=== PATIENT | female | born 1990 | race Caucasian/White ===

== ENCOUNTER 2017-12-26 10:10 | Inpatient (IN) | payer BC, MEDICAID ==
[2017-12-26] MEDS: RINGER'S SOLUTION,LACTATED 1,000 ML IV ONE ×3 (10:40→21:10)
[2017-12-26] MEDS ORDERED: oxyCODONE HCL 5 MG TABLET PO PRN (11:05)
--- NOTE | 2017-12-26 16:30 | PN ---
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 admitted for severe right sided back pain and flank pain. received rocephin 1 g iv at 8 am. IV hydration with LR x 2 liter and now at 125 ml/h. feeling better now. flank pain is at 1/10. urinated 3-4 times with good amount of urine, not measured. urine was rita color earlier and now clearer. patient is afebrile. patient vitals now: BP 111/57, P 97, 96, 92, 93 O2 sat 99% ra T 36.9 FHR: reassuring, 125s with accels. renal u/s showed severe right sided hydronephrosis with debris, possible obstructed and infected, but bilateral ureteral jets seen. minimal left-sided hydronephrosis. spoke to Dr. Faustin regarding a stat consultation. He thought the patient's condition is overall stable and he will see the patient tomorrow. He recommended to repeat renal u/s in the morning and a KUB to rule out stones. will put KUB on hold until he sees the patient. will transfer to [facility] if patient is not improving. continue rocephin 1 g q12h, iv LR at 125 ml/h, pain meds prn. Adam Sauer MD Objective - Vitals Vitals: Last Vital Signs Temp 36.8 C 12/26/17 10:41 Pulse 102 H 12/26/17 10:41 Resp 18 12/26/17 10:41 BP 111/55 12/26/17 10:41 Pulse Ox 98 12/26/17 10:41
[2017-12-26] MEDS: oxyCODONE HCL/ACETAMINOPHEN 1 TAB TABLET PO PRN (19:22)
[2017-12-26] MEDS: cefTRIAXone SODIUM 1,000 MG in DEXTROSE 5 % IN WATER 50 ML IV SCH ×2 (19:56)
[2017-12-27] MEDS: oxyCODONE HCL/ACETAMINOPHEN 1 TAB TABLET PO PRN ×3 (01:47→18:44)
[2017-12-27 06:05] LABS: Urine Bilirubin Negative (NEGATIVE); Urine Blood 25 /ul (NEGATIVE); Urine Ketone Negative (NEGATIVE); Urine Nitrite Negative (NEGATIVE); Urine Protein Negative (NEGATIVE); Urine Urobilinogen Normal (NORMAL); Urine pH 7.5 pH (5.0-7.0)
[2017-12-27 06:15] LABS: Urine Appearance Cloudy (CLEAR); Urine Bacteria 1+; Urine Color Yellow; Urine RBC 0-5 /hpf (0-5); Urine WBC 25-50 /hpf (0-5)
[2017-12-27 06:28] LABS: Hematocrit 24.6 % (37.0-47.0); Hemoglobin 8.2 gm/dL (12.5-16.0); Mean Cell Volume 97.6 fl (78-100); Mean Corpuscular Hemoglobin 32.5 pg (27-31); Mean Corpuscular Hgb Conc 33.3 g/dl (32-36); Platelet Count 403 K/mm3 (150-450); Red Blood Count 2.52 M/mm3 (4.2-5.4); Red Cell Distribution Width 14.2 % (11.5-14.0); White Blood Count 12.6 K/mm3 (4.0-10.5)
[2017-12-27 06:31] LABS: Total Cells Counted 100
[2017-12-27 06:42] LABS: Anion Gap 11.7 mmol/L (6.8-13.8); BUN/Creatinine Ratio 10.2 (9.0-21.6); Bilirubin, Total 0.2 mg/dL (0.0-1.1); Ca. Corrected For Albumin 9.3 mg/dL (8.4-10.2); Potassium 3.7 mmol/L (3.4-4.6); Total Protein 5.7 gm/dL (6.2-8.2)
[2017-12-27 06:45] LABS: Atypical (Reactive) Lymph 2 % (0-2); Band 2 % (0-2.0); Lymphocyte 10 % (20-51); Monocyte 7 % (0-9); Neutrophil 79 % (42-75)
[2017-12-27 06:46] LABS: Platelet Estimate Normal (NORMAL); RBC Morphology Normal (NORMAL)
[2017-12-27] MEDS: RINGER'S SOLUTION,LACTATED 1,000 ML IV ONE ×2 (06:48→16:42)
[2017-12-27] MEDS: cefTRIAXone SODIUM 1,000 MG in DEXTROSE 5 % IN WATER 50 ML IV SCH ×4 (08:11→20:20)
--- NOTE | 2017-12-27 11:41 | PN ---
Subjective - Date and Time Seen Date: 12/27/17 Subjective Narrative: Hospital day 1, 34.1 weeks . history of recurrent UTI. admitted for inpatient treatment of right pyelonephritis. currently on rocephin 1 g iv q12h, iv fluid and pain medications. patient responded well to treatment clinically. remains afebrile. back pain and flank pain much improved. urine looked better, now cloudy yellow, but maple syrup looking yesterday. labs showed WBC down to 12.6, BUN/Cr 5/0.49, u/a with decreasing WBC count to 25 -50, previously TNTC. urine culture from [facility] still pending. blood culture from here still pending. status: reassuring, with baseline 120s with accels and no contractions. Exam: NAD Lungs: clear bilaterally Abdomen: gravid, soft, non-tender Back: right CVA minimally tender, was severely tender yesterday Ext: no edema or calf tenderness. renal u/s showed severe hydronephrosis of the right and mild hydronephrosis on the left. however, bilateral ureteral jets were seen on u/s. Spoke with Dr. Alvarez (phone consultation), he thought that the patient might not need stenting given clinical improvement. He may have her partner come see the patient tomorrow or set up a follow up appointment in clinic in one week. He recommended to put patient on Keflex 250 mg daily at bedtime for prophylaxis after discharge. also spoke with Dr. Sanford regarding patient's admission and treatment. She will assume the patient care from now. Adam Sauer MD Objective - Vitals Vitals: Last Vital Signs Temp 36.9 C 12/27/17 07:03 Pulse 81 12/27/17 07:03 Resp 16 12/27/17 07:03 BP 104/61 12/27/17 07:03 Pulse Ox 99 12/27/17 07:03 - Abnormal Lab Findings Abnormal Lab Findings: Abnormal Lab Results 12/27/17 12/27/17 12/27/17 Range/Units 05:55 06:17 06:17 WBC 12.6 H (4.0-10.5) K/mm3 RBC 2.52 L (4.2-5.4) M/mm3 Hgb 8.2 L (12.5-16.0) gm/dL Hct 24.6 L (37.0-47.0) % MCH 32.5 H (27-31) pg RDW 14.2 H (11.5-14.0) % MPV 10.0 H (6.0-9.5) fl Neutrophils % (Manual) 79 H (42-75) % Lymphocytes % (Manual) 10 L (20-51) % Neutrophils # (Manual) 10.0 H (1.3-6.0) K/mm3 Lymphocytes # (Manual) 1.3 L (1.5-3.5) k/mm3 Chloride 108 H (97-106) mmol/L Est GFR (Non-Af Amer) 159 H (60-130) mL/min ALT 15 L (19-67) U/L Total Protein 5.7 L (6.2-8.2) gm/dL Albumin 2.0 L (3.4-5.0) gm/dl Urine Blood 25 H (NEGATIVE) /ul Ur Leukocyte Esterase 500 H (NEGATIVE) /ul Urine WBC 25-50 H (0-5) /hpf Urine Bacteria 1+ H (NONE)
[2017-12-27] MEDS ORDERED: TAMSULOSIN HCL 0.4 MG CAP.SR.24H PO SCH (21:00)
[2017-12-28] MEDS: oxyCODONE HCL/ACETAMINOPHEN 1 TAB TABLET PO PRN (00:47)
[2017-12-28] MEDS: cefTRIAXone SODIUM 1,000 MG in DEXTROSE 5 % IN WATER 50 ML IV SCH ×2 (08:58)
--- NOTE | 2017-12-28 09:13 | PN ---
Subjective - Date and Time Seen Date: 12/28/17 Time: 09:07 Subjective Narrative: Feeling much better. Wanting to go home. Objective - Review of Systems Generalized/Overall Review: Reports: No Symptoms Reported EENTM: Reports: No Symptoms Reported Respiratory: Reports: No Symptoms Reported Cardiac: Reports: No Symptoms Reported Abdominal: Reports: No Symptoms Reported Genitourinary Symptoms: Reports: No Symptoms Reported, Other - movement, denies contractions, LOF, bleeding Musculoskeletal Complaints: Reports: No Symptoms Reported Neurological: Reports: No Symptoms Reported Skin: Reports: No Symptoms Reported Endocrine: Reports: No Symptoms Reported - Vitals Vitals: Last Vital Signs Temp 37.0 C 12/28/17 07:46 Pulse 81 12/28/17 07:46 Resp 18 12/28/17 07:46 BP 116/55 12/28/17 07:46 Pulse Ox 100 12/28/17 07:46 - Exam Constitutional: Present: Alert, Oriented x3, Cooperative Respiratory: Present: no respiratory distress, no accessory muscle use Cardiovascular/Chest: Present: no edema Abdomen: Present: soft, nontender /Rectal: Present: Exam deferred Extremity: Present: normal range of motion, no pedal edema, no calf tenderness Skin Exam: Present: normal color, warm/dry Appearance: Present: appropriate appearance, appropriate insight Eye contact: Present: cooperative Assessment/Plan - Problems/Diagnosis (1) Pyelonephritis affecting in third trimester Problem: Acute Narrative: Symptoms improving. Afebrile. Continuing on rhocephin IV. Urology consultation pending for discharge plans. OK for d/c and FU with me next week if OK by urology. (2) Hydronephrosis determined by ultrasound Problem: Acute Narrative: Pain resolved. Plan per urology.
[2017-12-28 14:55] VITALS: BP 106/56
== END 2017-12-28 13:35 | disposition home or self-care (01) | DRG 781 ==
LOC: MS 10:10 → OBSVTOIN 16:23
PROVIDERS: ADMIT Obstetrics & Gynecology; ATTEND Obstetrics & Gynecology
DX: O23.03 Infections of kidney in pregnancy, third trimester (principal); N13.6 Pyonephrosis; B96.20 Unspecified Escherichia coli [E. coli] as the cause of diseases classified elsewhere; F17.210 Nicotine dependence, cigarettes, uncomplicated; Z3A.34 34 weeks gestation of pregnancy; Z87.440 Personal history of urinary (tract) infections
CPT/HCPCS: 36415; 59025; 76770; 80053; 81001; 85007; 85025; 87040; G0379